=== PATIENT | male | born 1945 | race Caucasian/White ===

== ENCOUNTER → 2018-12-27 | Outpatient (CLI) | payer MEDICARE ==
[2018-12-27 16:37] LABS: HEMATOCRIT 43 % (40-54); HEMOGLOBIN 13.7 G/DL (13.3-17.7); MEAN CORPUSCULAR HEMOGLOBIN 29 PG (25-34); MEAN CORPUSCULAR HGB CONC 32 G/DL (32-36); MEAN CORPUSCULAR VOLUME 91 FL (80-99); MEAN PLATELET VOLUME 11.5 FL (7.4-10.4); PLATELET COUNT 295 10^3/uL (130-400); RED CELL DISTRIBUTION WIDTH 15.1 % (10.0-14.5); WHITE BLOOD COUNT 10.3 10^3/uL (4.3-11.0)
[2018-12-27 16:38] LABS: BASOPHILS # (AUTO) 0.2 10^3/uL (0.0-0.1); BASOPHILS % (AUTO) 2 % (0-10); EOSINOPHILS # (AUTO) 0.2 10^3/uL (0.0-0.3); EOSINOPHILS % (AUTO) 2 % (0-10); LYMPHOCYTES # (AUTO) 1.7 X 10^3 (1.0-4.0); LYMPHOCYTES % (AUTO) 16 % (12-44); MONOCYTES # (AUTO) 1.2 X 10^3 (0.0-1.0); MONOCYTES % (AUTO) 11 % (0-12); NEUTROPHILS % (AUTO) 68 % (42-75)
[2018-12-27 16:44] LABS: CREATININE SERUM 2.09 MG/DL (0.60-1.30)
== END ==
LOC: LAB FS 16:11
PROVIDERS: ATTEND Internal Medicine Infectious Disease
DX: N39.0 Urinary tract infection, site not specified (principal)
CPT/HCPCS: 36415; 82565; 84520; 85025